=== PATIENT | male | born 1995 | race Caucasian/White ===

== ENCOUNTER 2018-08-31 19:20 | Emergency (ER) | payer SELFPAY ==
[~2018-08-31] VITALS: Ht 170.2 cm; Wt 67.1 kg
[2018-08-31 19:50] VITALS: Ht 170.2 cm; Wt 67.1 kg
--- NOTE | 2018-08-31 23:14 | ERD ---
ER Documentation Chief Complaint Chief Complaint patient fell off skateboard, c/o left shoulder pain. +deformity HPI This is a 22-year-old male presents emergency department with complaints of left shoulder pain from a fall. Stated that he fell at around 4 PM today while playing skateboard. Denies headache, head injury, loss of consciousness, dizziness, neck pain, neck stiffness, throat pain, difficulty swallowing, difficulty breathing lying flat, chest pain, back pain, abdominal pain, nausea, vomiting, constipation, diarrhea, urinary symptoms, loss of bowel and bladder control, difficulty walking due to pain, numbness or tingling sensation, calf pain, recent travel, recent major surgery in the last 3 weeks, calf pain, recent long travel, recent exposure to any illness, recent antibiotic use in the last 3 months, fever, chills, seizures. Past medical history: Surgical history: Social: Denies smoking, use of alcoholic beverages, use of illegal drugs. ROS All systems reviewed and are negative except as per history of present illness. Medications Home Meds Active Scripts Hydrocodone/Acetaminophen ([place] 10-325 Tablet) 1 Each Tablet, 1 TAB PO Q6H PRN for SEVERE PAIN LEVEL 7-10, #15 TAB Prov:AKTLYNILABANBALBINAAR F 09/01/18 Ibuprofen* (Motrin*) 800 Mg Tab, 800 MG PO Q6H PRN for PAIN AND OR ELEVATED TEMP, #30 TAB Prov:KATLYNILABANBALBINAAR F 09/01/18 Allergies Allergies: Coded Allergies: No Known Drug Allergy (Verified Allergy, Unknown, 08/31/18) PMhx/Soc Medical and Surgical Hx: pt denies Medical Hx, pt denies Surgical Hx Hx Alcohol Use: Yes Hx Substance Use: Yes (MARIJUANA) Hx Tobacco Use: Yes Smoking Status: Current every day smoker Physical Exam Vitals Physical Exam Const: No acute distress Head: Atraumatic Eyes: Normal Conjunctiva ENT: Normal External Ears, Nose and Mouth. Neck: Full range of motion. No meningismus. Resp: Clear to auscultation bilaterally Cardio: Regular rate and rhythm, no murmurs Abd: Soft, non tender, non distended. Normal bowel sounds Skin: No petechiae or rashes Back: No midline or flank tenderness Ext: No cyanosis, or edema. Left shoulder: Mild deformity. Skin is intact. Good and full range of motion. Left clavicle area has good and full range of motion. Left humerus is unremarkable. Left shoulder/forearm/wrist/hand is unremarkable. Right upper extremity is unremarkable. C-spine/T-spine/L-spine are in midline with good and full range of motion and is no swelling/deformity /bulging/point of tenderness. Neur: Awake and alert. No neurological deficits. Ambulatory with steady gait.. Psych: Normal Mood and Affect Results 24 hrs Current Medications Medications Dose Sig/Tonya Start Time Status Last (Trade) Ordered Route PRN Stop Time Admin Dose Reason Admin 1 tab ONCE ONCE 09/01/18 DC 09/01/18 Acetaminophen PO 00:30 09/01/18 00:26 / 00:31 Hydrocodone Bitart ([place] ()) Procedures/MDM Diagnostic tests: X-ray of the clavicle: 1. Type 3 acromioclavicular separation with widening of the acromioclavicular joint and coracoclavicular interval. 2. Negative for evidence of acute fracture of the left clavicle. X-ray of the left shoulder:1. Type 3 acromioclavicular separation with widening of the acromioclavicular joint and coracoclavicular interval as described. 2. Negative for evidence of acute fracture or dislocation of the glenohumeral joint. This case was discussed with my supervising physician, Dr. Samuel Bell who recommends for me to put the patient on shoulder immobilizer and have him follow-up with an orthopedic doctor. Treatment: [place] p.o. shoulder immobilizer. Re-evaluation: No neurovascular deficit prior to and after the application of a shoulder immobilizer. Differential diagnosis I have low suspicion for compartment syndrome, displaced fracture, punctured lungs, C-spine fracture. Final diagnosis: Type III AC separation of the left shoulder. Prescription: Motrin. Follow-up with PCP in the next 24-48 hours. PCP to refer patient to orthopedic doctor in the next 3-4 days. Come back here in the emergency department for any new symptoms or any worsening symptoms. All questions and concerns were answered. Patient and family members verbalized understanding and agreed with plan of care. Hemodynamically stable on discharge. Departure Diagnosis: Primary Impression: AC separation, type 3 Condition: Stable Additional Instructions: Follow-up with PCP in the next 24-48 hours. PCP to refer patient to orthopedic doctor in the next 3-4 days. Come back here in the emergency department for any new symptoms or any worsening symptoms. CORINE PULIDO Aug 31, 2018 23:14
[2018-09-01] MEDS ORDERED: HYDROCODONE/APAP (10/325) TAB PO ONE (00:30)
[2018-09-01] MEDS ORDERED: IBUP800T48 PO (00:51)
[2018-09-01] MEDS ORDERED: HYDR-3980 PO (00:52)
[2018-09-01 01:28] VITALS: BP 131/71; PULSE 88; RESP 20
== END 2018-09-01 01:29 | disposition home or self-care (01) ==
LOC: FTE 19:20
DX: S43.102A Unspecified dislocation of left acromioclavicular joint, initial encounter (principal); F17.210 Nicotine dependence, cigarettes, uncomplicated; V00.131A Fall from skateboard, initial encounter
CPT/HCPCS: 73000; 73030